=== PATIENT | female | born 1935 | race Caucasian/White ===

== ENCOUNTER → 2016-10-04 | Outpatient (CLI) | payer OTHER | LOC: BHFA 09:30 | PROVIDERS: ATTEND Internal Medicine Cardiovascular Disease | DX: I48.91 Unspecified atrial fibrillation (principal); Z95.0 Presence of cardiac pacemaker ==

== ENCOUNTER → 2017-02-13 | Outpatient (CLI) | payer OTHER ==
--- NOTE | 2017-02-21 17:48 | CPEEG ---
[f rep st] ELECTROENCEPHALOGRAM FOUR-HOUR VIDEO ELECTROENCEPHALOGRAM. DATE OF STUDY: ORDERING PHYSICIAN: Jesus Davidson M.D. INTERPRETATION: This 4-hour video EEG recording is essentially normal. There were no potentially e pileptogenic abnormalities present in the awake or sleep recordings. During the monitoring session, the patient did not have any clinical events. REPORT: This 4-hour video EEG contains 9 to 10 Hz alpha to the posterior head regions. There was n o abnormal activation at rest, during photic stimulation, or hyperventilation. The patient became d rowsy and fell into sustained sleep during the study. During drowsiness, the patient had intermitte nt slowing over the bitemporal head regions. This is a normal drowsy variant in this age group. Th ere was no abnormal activation during drowsiness, sleep, or during times of arousal. The patient di d not have any clinical events during the video EEG monitoring session. /[id number]/MODL
== END ==
LOC: FCPNEURO 08:38
PROVIDERS: ATTEND Psychiatry & Neurology Neurology
DX: R55 Syncope and collapse (principal)

== ENCOUNTER → 2017-07-16 | Outpatient (CLI) | payer OTHER | LOC: BHFA 10:00 | PROVIDERS: ATTEND Internal Medicine Interventional Cardiology | DX: I48.91 Unspecified atrial fibrillation (principal) ==